=== PATIENT | female | born 1950 | race Caucasian/White ===

== ENCOUNTER 2020-08-13 06:22 | Day surgery (SDC) | payer OTHER ==
--- NOTE | 2020-08-11 04:38 | EKG ---
Test Date: 2020-08-09 Test Time: 12:53:04 Cosmetic Chemist: MADHAV MEASUREMENT RESULTS: Intervals: Rate: 91 WI: QRSD: 70 QT: 372 QTc: 457 [place]: P: WI: QRS: 4 T: -72 INTERPRETIVE STATEMENTS: Atrial fibrillation Nonspecific ST and T wave abnormality, probably digitalis effect Abnormal ECG No previous ECG available for comparison Electronically Signed On 08-11-20 04:32:53 CDT by Cisco Means
[2020-08-13] MEDS ORDERED: Ringers Lactate 1,000 ML IV ONE (06:53)
[2020-08-13] MEDS ORDERED: MIDAZOLAM HCL 2 MG/2 ML INJ ONE (07:31)
[2020-08-13] MEDS ORDERED: FENTANYL CITR 100 MCG/2 ML ONE (07:31)
[2020-08-13] MEDS ORDERED: propofoL 200 MG/20 ML VIAL IV ONE (07:31)
[2020-08-13] MEDS ORDERED: LIDOCAINE 2% MPF 5 ML VIAL ONE (07:32)
[2020-08-13] MEDS ORDERED: dexAMETHasone 10 MG/ML VIAL ONE (07:32)
[2020-08-13] MEDS ORDERED: ROCURONIUM 50 MG/5 ML VIAL IV ONE (07:32)
[2020-08-13] MEDS ORDERED: LIDOCAINE 1% W/EPI 1:100,000 MDV 20 ML VIAL ONE (08:33)
[2020-08-13] MEDS ORDERED: EPINEPHRINE/PF 1 MG/ML AMP ONE (08:33)
[2020-08-13] MEDS ORDERED: ONDANSETRON 4 MG/2 ML VIAL ONE (10:20)
--- NOTE | 2020-08-13 10:27 | P.BOP ---
Preoperative diagnosis: neoplasm uncertain behavior, pharyx Postoperative diagnosis: same Primary procedure: DL with telescope and biopsy Infection Control Nurse: NONE,NONE Estimated blood loss: minimal Specimen: left lateral/posterior pharyngeal wall Anesthesia: General Complications: None Implants: none Fluids & blood products: see nursing record Transferred to: Recovery Room Condition: Good
--- NOTE | 2020-08-13 11:13 | OP ---
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 Postoperative Diagnosis: Neoplasm of pharynx of uncertain behavior. Procedure: Direct laryngoscopy with telescope and biopsy. Findings: 2.5 x 2 cm ulceration with small areas of exophytic appearing tumor located on the left lateral and posterior pharyngeal wall. Clinically suspicious for squamous cell carcinoma. Indication For Procedure: The patient is a smoker and daily alcohol user, who presented with chronic sore throats and odynophagia. Her laryngoscopy and physical exam were suspicious for ulceration or tumor and recommendation was made to proceed with biopsy. Description Of Procedure In Detail: The patient was brought to the operating room. She was placed under general anesthesia via oral endotracheal tube. The exam under anesthesia revealed the patient had normal lips and buccal mucosa, normal gingiva, edentulous, no visible or palpable lesions of the floor of mouth, retromolar trigone or oral tongue. The patient had no significant tonsillar tissue and findings suggestive of previous tonsillectomy. The base of tongue was soft to palpation. The vallecula was clear to palpation. The left posterior and lateral pharyngeal wall had a palpable ulcerated area that was felt to be about 1.5 to 2 cm. The Ishaan laryngoscope was then used to perform a direct laryngoscopy. The soft palate, uvula, tonsillar fossas appeared normal. The vallecula and the epiglottis appeared normal. The false vocal fold, true vocal fold, retinoid and pyriform sinuses appeared normal. The right lateral and posterior pharyngeal wall was normal. There was a large ulceration of the left lateral and posterior pharyngeal wall. A pledget was used to perform a measurement of the ulceration, which resulted in a 2.5 x 2 cm size estimation. During suspension, the 15 degree rigid telescope was used to obtain photo documentation of the lesion in order to provide clear communication with future Radiation and Medical Oncology providers regarding the size and location of the tumor. A cup forceps was used to take several biopsies from the ulcerated and raised edges. A gauze sponge was packed within the wound and left in place for several minutes. After removal, the biopsy site appeared hemostatic. There was no significant bleeding. The procedure was concluded and the patient was returned to care of anesthesia. During the final count, it was noted that the pledget used to measure the tumor was not present in the count. The Ishaan laryngoscope was used again to perform a laryngoscopy and thoroughly examine the surgical field. The pledget was not found to be within the patient. On further searching, the pledget of interest was located on the floor and included to complete the final correct account. Following the completion and the correct final counts, the patient was returned to care of anesthesia and was extubated in the operating room without difficulty. She was transported to the recovery room and will be discharged later today in the care of her family to resume diet as tolerated. She has a followup to discuss the surgical findings and implications with Dr. Real in 10 days. KALEB/CALDERON Voice ID: [id number] Report ID: [id number] MTDD
[2020-08-13 11:22] VITALS: BP 109/60; TEMP 96.6; O2SAT 95
== END 2020-08-13 11:00 | disposition home health service (06) ==
LOC: OR 06:22
PROVIDERS: ATTEND Otolaryngology
PROC: 0CBM8ZX Excision of Pharynx, Via Natural or Artificial Opening Endoscopic, Diagnostic (ICD-10-PCS; principal; 2020-08-13 08:00)
DX: D00.08 Carcinoma in situ of pharynx (principal); Z72.0 Tobacco use; Z20.822 Contact with and (suspected) exposure to COVID-19
CPT/HCPCS: 88305; 93005; J0171; J1100; J2250; J2405; J2704; J3010; J7120; U0002

== ENCOUNTER 2020-11-05 10:39 | Emergency (ER) | payer OTHER ==
--- OUTSIDE RECORDS SUMMARY | 2020-11-05 10:43 | XMS REPORT | Continuity of Care Document ---
:1950 Author Organization [facility] t Address [address] [place] [address] Care Team Providers Name Role Phone Ross WEBER, T Attending Clinician Unavailable Kamille Poole DO Attending Clinician Only, Test Attending Clinician Unavailable Problems This patient has no known problems. Allergies, Adverse Reactions, Alerts This patient has no known allergies or adverse reactions. Social History Social Habit Start Date Stop Date Quantity Comments Source Sex Assigned At [birth year] [place] M ethodist 00:00:00 00:00:00 Medications This patient has no known medications. Procedures This patient has no known procedures. Encounters Start End Encounter Admission Attending Care Care Encounter Source Date/Time Date/Time Type Type Clinicians Facility Department ID 2020-05-04 2020-05-04 Letter MARY Hawkins [id number] 00:00:00 00:00:00 (Out) Ariela ALVAREZ [id number] [facility] [id number] 2020-05-04 2020-05-04 Telephone MARY Poole [id number] 00:00:00 00:00:00 Yong ALVAREZ [id number] [place] [id number] 2020-05-03 2020-05-03 Laboratory Only, [facility] [id number] 12:01:39 12:16:39 Only Test [place] [id number] [place] [id number] [place] [id number] 353 2019-10-21 2019-10-21 Laboratory Only, [facility] [id number] 14:06:14 14:21:14 Only Test [place] [id number] [place] [id number] [facility] [id number] [facility] 353 Building Results This patient has no known results.
[2020-11-05] MEDS ORDERED: CODEINE 12mg/APAP 120mg PER 5 ML UCUP ONE (12:14)
[2020-11-05] MEDS ORDERED: LIDOCAINE VISCOUS 2% SOLN 15 ML UDC ONE (12:14)
[2020-11-05] MEDS ORDERED: NA CHLORIDE 0.9% 1,000 ML ONE (12:14)
[2020-11-05] MEDS ORDERED: FAMOTIDINE 20 MG/2 ML VIAL IV ONE (12:14)
[2020-11-05 12:18] LABS: Absolute Lymphocytes (CBC) 0.4 K/uL (0.7-4.9); Basophils % 0.4 % (0-1.3); Hematocrit 38.9 % (36.0-45.0); Lymphocytes % 4.3 % (15.3-44.8); MPV 8.2 fL (7.6-11.3); RBC Red Blood Cell Count 3.89 M/uL (3.86-4.86)
[2020-11-05 12:43] LABS: ALT/SGPT 13 U/L (12-78); AST/SGOT 13 U/L (15-37); Albumin 2.9 g/dL (3.4-5.0); Alkaline Phosphatase 82 U/L (45-117); BUN Blood Urea Nitrogen 10 mg/dL (7-18); Bicarbonate 35 mmol/L (21-32); Bilirubin Direct 0.1 mg/dL (0-0.2); Bilirubin Total 0.4 mg/dL (0.2-1.0); Glucose Level 110 mg/dL (74-106); Protein, Total 7.2 g/dL (6.4-8.2); Sodium Level 134 mmol/L (136-145)
[2020-11-05 12:50] LABS: Blood Morphology Comment NOT SEEN (NOT SEEN); Platelet Estimate ADEQ; White Blood Cell Scan OK (OK)
[2020-11-05 13:14] LABS: Potassium 2.8 mmol/L (3.5-5.1)
[2020-11-05] MEDS ORDERED: POTASSIUM CL SA 10 MEQ TAB PO ONE (13:50)
[2020-11-05] MEDS ORDERED: KCL 20 MEQ/100 mL IVPB 20 MEQ/100 ML BAG IV ONE (13:50)
--- NOTE | 2020-11-05 15:33 | ER ---
Nurse's Notes [facility] Name: Katheryn García Age: 70 yrs Sex: Female : 1950 Arrival Date: 11/05/2020 Time: 10:43 Bed 18 Private MD: out of town, doctor Diagnosis: Acute laryngitis and tracheitis-Radiation induced Presentation: 11/05 11:00 Chief complaint: Patient states: Pt presents from home with complaints of not being kg able to eat for 4 days. She is receiving radiation for cancer on her neck and unable to swallow due to the pain. She has been drinking 3 glasses of water but unable to take her medication due to it being too painful.. Coronavirus screen: Client denies travel out of the [place] in the last 14 days. At this time, unable to obtain information related to travel outside the [place] Ebola Screen: Patient negative for fever greater than or equal to 101.5 degrees Fahrenheit, and additional compatible Ebola Virus Disease symptoms Patient denies exposure to infectious person. Patient denies travel to an Ebola-affected area in the 21 days before illness onset. Initial Sepsis Screen: Does the patient meet any 2 criteria? No. Patient's initial sepsis screen is negative. Does the patient have a suspected source of infection? No. Patient's initial sepsis screen is negative. Risk Assessment: Do you want to hurt yourself or someone else? Patient reports no desire to harm self or others. Onset of symptoms was November 01, 2020. 11:00 Method Of Arrival: Ambulatory kg 11:00 Acuity: JEAN 4 kg 12:09 Acuity: JEAN 3 iw Historical: - Allergies: 11:07 No Known Allergies; kg - PMHx: 11:07 Cancer; throat; High Cholesterol; Hypertension; Anxiety; Depression; kg - PSHx: 11:07 Heart stents; ; Tonsillectomy; left hip surgery; kg - Immunization history:: Adult Immunizations not up to date, Client reports receiving the 2nd dose of the Covid vaccine. - Social history:: Smoking status: Patient/guardian denies using tobacco, Stopped _ months ago 1. Screenin:46 Abuse screen: Denies threats or abuse. Nutritional screening: Difficulty vg1 chewing/swallowing? Yes. Tuberculosis screening: No symptoms or risk factors identified. Fall Risk No fall in past 12 months (0 pts). No secondary diagnosis (0 pts). IV access (20 points). Ambulatory Aid- None/Bed Rest/Nurse Assist (0 pts). Gait- Normal/Bed Rest/Wheelchair (0 pts) Mental Status- Oriented to own ability (0 pts). Total Leonard Fall Scale indicates No Risk (0-24 pts). Assessment: 11:38 General: Appears in no apparent distress. uncomfortable, Behavior is calm, cooperative. vg1 Pain: Complains of pain in throat Pain currently is 8 out of 10 on a pain scale. Pain began 2-3 days ago. Noted to be grimacing. Neuro: Level of Consciousness is awake, alert, obeys commands, Oriented to person, place, time, situation. Cardiovascular: Patient's skin is warm and dry. Respiratory: Airway is patent Respiratory effort is even, unlabored. GI: No signs and/or symptoms were reported involving the gastrointestinal system. : No signs and/or symptoms were reported regarding the genitourinary system. EENT: Throat is reddened has patchy exudate Reports difficulty swallowing Pt stated drinks about two glass of water a day and hasnt taken medication because its too pain to swallow and is unable to eat solid food. Derm: Skin is intact, Skin is pink, warm \T\ dry. Musculoskeletal: Circulation, motion, and sensation intact. 13:11 Reassessment: Patient appears in no apparent distress at this time. Patient and/or vg1 family updated on plan of care and expected duration. Pain level reassessed. Patient is alert, oriented x 3, equal unlabored respirations, skin warm/dry/pink. 14:52 Reassessment: Patient appears in no apparent distress at this time. Patient and/or vg1 family updated on plan of care and expected duration. Pain level reassessed. Patient is alert, oriented x 3, equal unlabored respirations, skin warm/dry/pink. Patient states feeling better. Vital Signs: 11:00 BP 108 / 65; Pulse 62; Resp 14; Temp 97.6(O); Pulse Ox 100% ; Weight 44.77 kg (M); kg Height 5 ft. 1 in. (154.94 cm) (R); Pain 8/10; 11:44 BP 114 / 61; Pulse 62; Resp 16; Pulse Ox 98% on R/A; vg1 12:45 BP 120 / 59; Pulse 55; Resp 16; Pulse Ox 99% on R/A; vg1 14:00 BP 113 / 89; Pulse 57; Resp 16; Pulse Ox 100% on R/A; vg1 14:30 BP 148 / 74; Pulse 58; Resp 14; Pulse Ox 100% on R/A; vg1 11:00 Body Mass Index 18.65 (44.77 kg, 154.94 cm) kg ED Course: 10:43 Patient arrived in ED. hh 10:44 out of town, doctor is Private Physician. hh 11:05 Triage completed. kg 11:14 Luis A Watkins MD is Attending Physician. kdr 11:38 Opal Mckenzie RN is Primary Nurse. vg1 11:46 Patient has correct armband on for positive identification. Bed in low position. Call vg1 light in reach. Side rails up X2. Adult w/ patient. 11:46 Arm band placed on. vg1 12:04 Initial lab(s) drawn, by sd, sent to lab. Inserted saline lock: 22 gauge in right vg1 antecubital area, using aseptic technique. Blood collected. 15:31 Pj Navarro MD is Referral Physician. kdr 15:58 No provider procedures requiring assistance completed. IV discontinued, intact, vg1 bleeding controlled, No redness/swelling at site. Pressure dressing applied. Administered Medications: 12:06 Drug: NS 0.9% 1000 ml Route: IV; Rate: 1 bolus; Site: right antecubital; vg1 13:25 Follow up: IV Status: Completed infusion; IV Intake: 1000ml vg1 12:07 Drug: Pepcid (famotidine) 20 mg Route: IVP; Site: right antecubital; vg1 13:25 Follow up: Response: No adverse reaction vg1 12:09 Drug: Tylenol (acetaminophen) -Codeine #3 (120 mg - 12 mg) 10 ml Route: PO; vg1 13:25 Follow up: Response: No adverse reaction; Pain is decreased vg1 12:11 Drug: Viscous Lidocaine Liquid (4 %) 5 ml Route: Mucous Membrane; vg1 13:25 Follow up: Response: No adverse reaction; Pain is decreased vg1 13:47 Drug: Potassium Chloride 20 mEq Route: IV; Rate: calculated rate; Site: right vg1 antecubital; 15:58 Follow up: IV Status: Completed infusion vg1 13:48 Drug: Potassium Chloride 40 mEq Route: PO; vg1 15:58 Follow up: Response: No adverse reaction vg1 Intake: 13:25 IV: 1000ml; Total: 1000ml. vg1 Outcome: 15:33 Discharge ordered by . kdr 15:58 Discharged to home ambulatory, with family. vg1 15:58 Condition: stable 15:58 Discharge instructions given to patient, Instructed on discharge instructions, follow up and referral plans. medication usage, Demonstrated understanding of instructions, follow-up care, medications, Prescriptions given X 1. 15:59 Patient left the ED. vg1 Signatures: Luis A Watkins MD MD kdr Vika Chou, GUS RN iw Opal Mckenzie RN RN vg1 Ynes Blum RN RN Emerald Vickers Corrections: (The following items were deleted from the chart) 11:45 11:38 EENT: Throat is reddened has patchy exudate vg1 vg1
--- NOTE | 2020-11-05 15:33 | EDPHYS ---
Physician Documentation [facility] Name: Katheryn García Age: 70 yrs Sex: Female : 1950 Arrival Date: 11/05/2020 Time: 10:43 Bed 18 Private MD: out of town, doctor ED Physician Luis A Watkins HPI: 11/05 17:01 This 70 yrs old Female presents to ER via Ambulatory with complaints of kdr Decreased Appetite. 17:01 The patient has been receiving radiation to her neck and is now experiencing kdr significant burning with any food/fluids in her mouth as well as difficulty swallowing. There has been discussion of possible PEG tube placement but no definitive plan for implementation. Onset: The symptoms/episode began/occurred gradually, 1 week(s) ago. Severity of symptoms: At their worst the symptoms were moderate severe incapacitating in the emergency department the symptoms are unchanged. The patient has not experienced similar symptoms in the past. The patient has been recently seen by a physician: the patient's primary care provider. Historical: - Allergies: 11:07 No Known Allergies; kg - PMHx: 11:07 Cancer; throat; High Cholesterol; Hypertension; Anxiety; Depression; kg - PSHx: 11:07 Heart stents; ; Tonsillectomy; left hip surgery; kg - Immunization history:: Adult Immunizations not up to date, Client reports receiving the 2nd dose of the Covid vaccine. - Social history:: Smoking status: Patient/guardian denies using tobacco, Stopped _ months ago 1. ROS: 17:01 Constitutional: Negative for fever, chills, and weight loss, Eyes: Negative for injury, kdr pain, redness, and discharge, ENT: Negative for injury, pain, and discharge, Cardiovascular: Negative for chest pain, palpitations, and edema, Respiratory: Negative for shortness of breath, cough, wheezing, and pleuritic chest pain, Abdomen/GI: Negative for abdominal pain, nausea, vomiting, diarrhea, and constipation, Back: Negative for injury and pain, : Negative for injury, bleeding, discharge, and swelling, MS/Extremity: Negative for injury and deformity, Skin: Negative for injury, rash, and discoloration, Neuro: Negative for headache, weakness, numbness, tingling, and seizure activity. Psych: Negative for depression, anxiety, suicide ideation, homicidal ideation, and hallucinations, Allergy/Immunology: Negative for hives, rash, and allergies, Endocrine: Negative for neck swelling, polydipsia, polyuria, polyphagia, and marked weight changes, Hematologic/Lymphatic: Negative for swollen nodes, abnormal bleeding, and unusual bruising. 17:01 Neck: Positive for pain at rest, stiffness, tenderness, of the neck, Negative for injury or acute deformity, mass. Exam: 17:01 Constitutional: This is a well developed, well nourished patient who is awake, alert, kdr and in no acute distress. Head/Face: Normocephalic, atraumatic. Eyes: Pupils equal round and reactive to light, extra-ocular motions intact. Lids and lashes normal. Conjunctiva and sclera are non-icteric and not injected. Cornea within normal limits. Periorbital areas with no swelling, redness, or edema. Chest/axilla: Normal chest wall appearance and motion. Nontender with no deformity. No lesions are appreciated. Cardiovascular: Regular rate and rhythm with a normal S1 and S2. No gallops, murmurs, or rubs. Normal PMI, no JVD. No pulse deficits. Respiratory: Lungs have equal breath sounds bilaterally, clear to auscultation and percussion. No rales, rhonchi or wheezes noted. No increased work of breathing, no retractions or nasal flaring. Abdomen/GI: Soft, non-tender, with normal bowel sounds. No distension or tympany. No guarding or rebound. No evidence of tenderness throughout. Back: No spinal tenderness. No costovertebral tenderness. Full range of motion. Skin: Warm, dry with normal turgor. Normal color with no rashes, no lesions, and no evidence of cellulitis. 17:01 ENT: External ear(s): Mouth: Lips: Oral mucosa: Tongue: is normal, drooling, is not appreciated. Vital Signs: 11:00 BP 108 / 65; Pulse 62; Resp 14; Temp 97.6(O); Pulse Ox 100% ; Weight 44.77 kg (M); kg Height 5 ft. 1 in. (154.94 cm) (R); Pain 8/10; 11:44 BP 114 / 61; Pulse 62; Resp 16; Pulse Ox 98% on R/A; vg1 12:45 BP 120 / 59; Pulse 55; Resp 16; Pulse Ox 99% on R/A; vg1 14:00 BP 113 / 89; Pulse 57; Resp 16; Pulse Ox 100% on R/A; vg1 14:30 BP 148 / 74; Pulse 58; Resp 14; Pulse Ox 100% on R/A; vg1 11:00 Body Mass Index 18.65 (44.77 kg, 154.94 cm) kg MDM: 15:33 Patient medically screened. kdr 17:01 Data reviewed: vital signs, nurses notes. Response to treatment: the patient's symptoms kdr have markedly improved after treatment. 11/05 11:47 Order name: Basic Metabolic Panel; Complete Time: 13:23 kdr 11/05 11:47 Order name: CBC with Diff; Complete Time: 13:23 kdr 11/05 11:47 Order name: Hepatic Function; Complete Time: 13:23 kdr 11/05 12:25 Order name: CBC Smear Scan; Complete Time: 13:23 EDMS 11/05 11:47 Order name: IV Saline Lock; Complete Time: 12:17 kdr 11/05 11:47 Order name: Labs collected and sent; Complete Time: 12:17 kdr 11/05 12:45 Order name: PO challenge; Complete Time: 12:55 kdr Administered Medications: 12:06 Drug: NS 0.9% 1000 ml Route: IV; Rate: 1 bolus; Site: right antecubital; vg1 13:25 Follow up: IV Status: Completed infusion; IV Intake: 1000ml vg1 12:07 Drug: Pepcid (famotidine) 20 mg Route: IVP; Site: right antecubital; vg1 13:25 Follow up: Response: No adverse reaction vg1 12:09 Drug: Tylenol (acetaminophen) -Codeine #3 (120 mg - 12 mg) 10 ml Route: PO; vg1 13:25 Follow up: Response: No adverse reaction; Pain is decreased vg1 12:11 Drug: Viscous Lidocaine Liquid (4 %) 5 ml Route: Mucous Membrane; vg1 13:25 Follow up: Response: No adverse reaction; Pain is decreased vg1 13:47 Drug: Potassium Chloride 20 mEq Route: IV; Rate: calculated rate; Site: right vg1 antecubital; 15:58 Follow up: IV Status: Completed infusion vg1 13:48 Drug: Potassium Chloride 40 mEq Route: PO; vg1 15:58 Follow up: Response: No adverse reaction vg1 Disposition: 11/05/20 15:33 Discharged to Home. Impression: Acute laryngitis and tracheitis - Radiation induced. - Condition is Stable. - Discharge Instructions: Dysphagia, Laryngitis, [id number]. - Prescriptions for Lidocaine Viscous - take 5 milliliter by ORAL route 3 times per day As needed Swish and swallow no more than three times a day as needed for painful swallowing; 21 Container. - Medication Reconciliation Form, Thank You Letter form. - Follow up: Pj Navarro MD; When: 2 - 3 days; Reason: If symptoms return, Further diagnostic work-up, Recheck today's complaints, Continuance of care, Re-evaluation by your physician. - Problem is an ongoing problem. - Symptoms have improved. Signatures: Dispatcher [employer] EDMS Luis A Watkins MD MD kdr Opal Mckenzie RN RN vg1 Ynes Blum RN RN kg Corrections: (The following items were deleted from the chart) 15:59 15:33 11/05/2020 15:33 Discharged to Home. Impression: Acute laryngitis and tracheitis vg1 - Radiation induced. Condition is Stable. Forms are Medication Reconciliation Form, Thank You Letter, Antibiotic Education, Prescription Opioid Use. Follow up: Pj Navarro; When: 2 - 3 days; Reason: If symptoms return, Further diagnostic work-up, Recheck today's complaints, Continuance of care, Re-evaluation by your physician. Problem is an ongoing problem. Symptoms have improved. kdr
[2020-11-05 16:30] VITALS: TEMP 97.6
[2020-11-05 16:35] VITALS: O2SAT 100
[2020-11-05 16:36] VITALS: BP 148/74
== END 2020-11-05 15:59 | disposition home or self-care (01) ==
LOC: ER 10:39 → SUPCPDRO 10:39 → ER 15:59
DX: J04.2 Acute laryngotracheitis (principal); T66.XXXA Radiation sickness, unspecified, initial encounter; C14.0 Malignant neoplasm of pharynx, unspecified; E78.00 Pure hypercholesterolemia, unspecified; I10 Essential (primary) hypertension; F41.9 Anxiety disorder, unspecified; F32.9 Major depressive disorder, single episode, unspecified; Z95.5 Presence of coronary angioplasty implant and graft; Z87.891 Personal history of nicotine dependence
CPT/HCPCS: 96365; 96361; 85025; 80048; 36415; 80076; 96375; 99284; 96366; J3480; J7030

== ENCOUNTER 2020-11-12 09:15 | Emergency (ER) | payer OTHER ==
--- OUTSIDE RECORDS SUMMARY | 2020-11-12 09:17 | XMS REPORT | Continuity of Care Document ---
:1950 Author Organization [facility] t Address [address] [place] [address] Care Team Providers Name Role Phone Ross WBEER, T Attending Clinician Unavailable Kamille Poole DO Attending Clinician Only, Test Attending Clinician Unavailable Problems This patient has no known problems. Allergies, Adverse Reactions, Alerts This patient has no known allergies or adverse reactions. Social History Social Habit Start Date Stop Date Quantity Comments Source Sex Assigned At [birth year] [place] M ethodist 00:00:00 00:00:00 Medications This patient has no known medications. Procedures This patient has no known procedures. Encounters Start End Encounter Admission Attending Care Care Encounter Source Date/Time Date/Time Type Type Clinicians Facility Department ID 2020-05-04 2020-05-04 Letter MARY Hawkins [id number] 00:00:00 00:00:00 (Out) Ariela ALVAREZ [id number] [facility] [id number] 2020-05-04 2020-05-04 Telephone MARY Poole [id number] 00:00:00 00:00:00 Yong ALVAREZ [id number] [place] [id number] 2020-05-03 2020-05-03 Laboratory Only, [facility] [id number] 12:01:39 12:16:39 Only Test [place] [id number] [place] [id number] [place] [id number] 2019-10-21 2019-10-21 Laboratory Only, [facility] 1.2.840.114 [id number] 14:06:14 14:21:14 Only Test [place] [id number] [place] [id number] [facility] [id number] [facility] 353 Building Results This patient has no known results.
[2020-11-12 11:08] LABS: ALT/SGPT 15 U/L (12-78); AST/SGOT 18 U/L (15-37); Albumin 2.9 g/dL (3.4-5.0); Alkaline Phosphatase 84 U/L (45-117); BUN Blood Urea Nitrogen 10 mg/dL (7-18); Bicarbonate 28 mmol/L (21-32); Bilirubin Total 0.5 mg/dL (0.2-1.0); Glucose Level 87 mg/dL (74-106); Magnesium 1.5 mg/dL (1.8-2.4); Protein, Total 7.2 g/dL (6.4-8.2); Sodium Level 134 mmol/L (136-145)
[2020-11-12] MEDS ORDERED: NA CHLORIDE 0.9% 500 ML ONE (11:58)
[2020-11-12] MEDS ORDERED: KCL 20 MEQ/100 mL IVPB 20 MEQ/100 ML BAG IV ONE (11:59)
--- NOTE | 2020-11-12 13:31 | EDPHYS ---
Physician Documentation [facility] Name: Katheryn García Age: 70 yrs Sex: Female : 1950 Arrival Date: 11/12/2020 Time: 09:21 Bed 2 Private MD: ED Physician Edwina Pino HPI: 11/12 13:28 This 70 yrs old Female presents to ER via Wheelchair with complaints of Lower ma2 Potassium. 13:28 Onset: The symptoms/episode began/occurred gradually, 1 day(s) ago. Severity of ma2 symptoms: At their worst the symptoms were mild in the emergency department the symptoms are unchanged. The patient has not experienced similar symptoms in the past. sent by dr. fregoso for k replacement . Historical: - Allergies: 10:47 No Known Allergies; ph - PMHx: 09:33 Anxiety; Cancer; throat; Depression; High Cholesterol; Hypertension; ss - PSHx: 09:33 Heart stents; ; Tonsillectomy; left hip surgery; ss - Immunization history:: Adult Immunizations up to date. - Social history:: Smoking status: Patient denies any tobacco usage or history of. Patient/guardian denies using alcohol, street drugs, The patient lives with family. - Family history:: not pertinent. ROS: 13:28 Constitutional: Negative for fever, chills, and weight loss. ma2 13:28 All other systems are negative. Exam: 13:28 Constitutional: This is a well developed, well nourished patient who is awake, alert, ma2 and in no acute distress. Chest/axilla: Normal chest wall appearance and motion. Nontender with no deformity. No lesions are appreciated. Cardiovascular: Regular rate and rhythm with a normal S1 and S2. No gallops, murmurs, or rubs. Normal PMI, no JVD. No pulse deficits. Respiratory: Lungs have equal breath sounds bilaterally, clear to auscultation and percussion. No rales, rhonchi or wheezes noted. No increased work of breathing, no retractions or nasal flaring. Abdomen/GI: Soft, non-tender, with normal bowel sounds. No distension or tympany. No guarding or rebound. No evidence of tenderness throughout. Skin: Warm, dry with normal turgor. Normal color with no rashes, no lesions, and no evidence of cellulitis. MS/ Extremity: Pulses equal, no cyanosis. Neurovascular intact. Full, normal range of motion. Neuro: Awake and alert, GCS 15, oriented to person, place, time, and situation. Cranial nerves II-XII grossly intact. Motor strength 5/5 in all extremities. Sensory grossly intact. Cerebellar exam normal. Normal gait. Vital Signs: 09:39 BP 135 / 81; Pulse 60; Resp 16; Pulse Ox 100% on R/A; ph 12:24 BP 136 / 96; Pulse 56; Resp 18; Pulse Ox 100% on R/A; ph 13:30 BP 127 / 89; Pulse 54; Resp 16; Temp 97.2; Pulse Ox 100% on R/A; ph MDM: 09:31 Patient medically screened. ma2 13:28 Differential Diagnosis low potassium... Data reviewed: vital signs, nurses notes. ma2 Counseling: I had a detailed discussion with the patient and/or guardian regarding: the historical points, exam findings, and any diagnostic results supporting the discharge/admit diagnosis, the presence of at least one elevated blood pressure reading (>120/80) during this emergency department visit, the need for outpatient follow up. Response to treatment: the patient's symptoms have markedly improved after treatment. 11/12 09:32 Order name: CMP; Complete Time: 11:20 ma2 11/12 09:32 Order name: Magnesium; Complete Time: 11:20 ma2 Administered Medications: 11:45 Drug: Potassium Chloride 20 mEq Route: IV; Rate: calculated rate; Site: left forearm; ph 13:00 Follow up: Response: No adverse reaction; IV Status: Completed infusion ph Disposition: 11/12/20 13:30 Discharged to Home. Impression: Hypokalemia. - Condition is Stable. - Discharge Instructions: Potassium Content of Foods, Hypokalemia. - Prescriptions for Potassium Chloride 20 meq Oral Packet - take 1 packet by ORAL route once daily 1 packet in 6 (six) ounces of water or juice; Take after meal; 30 packet. - Medication Reconciliation Form, Thank You Letter, Antibiotic Education, Prescription Opioid Use form. - Follow up: Private Physician; When: Tomorrow; Reason: If symptoms return, Continuance of care. Signatures: Dispatcher [employer] Mary Thomas RN RN ss Lupe Eldridge RN RN Edwina Pino MD MD ma2 Corrections: (The following items were deleted from the chart) 14:02 13:30 11/12/2020 13:30 Discharged to Home. Impression: Hypokalemia. Condition is ph Stable. Prescriptions for Potassium Chloride 20 meq Oral Packet - take 1 packet by ORAL route once daily 1 packet in 6 (six) ounces of water or juice; Take after meal; 30 packet. and Forms are Medication Reconciliation Form, Thank You Letter, Antibiotic Education, Prescription Opioid Use. Follow up: Private Physician; When: Tomorrow; Reason: If symptoms return, Continuance of care. ma2
--- NOTE | 2020-11-12 13:31 | ER ---
Nurse's Notes [facility] Name: Katheryn García Age: 70 yrs Sex: Female : 1950 Arrival Date: 11/12/2020 Time: 09:21 Bed 2 Private MD: Diagnosis: Hypokalemia Presentation: 11/12 09:31 Chief complaint: Patient states: Sent by Dr. Navarro for low potassium (2.5). Pt was ss supposed to have potassium infusion prior to peg tube placement today, but did not show up for her infusion yesterday therefore was told to come to ER to have potassium replaced and reevaluated. Coronavirus screen: Client denies travel out of the [place] in the last 14 days. Ebola Screen: Patient denies exposure to infectious person. Patient denies travel to an Ebola-affected area in the 21 days before illness onset. 09:31 Method Of Arrival: Wheelchair ss 09:34 Onset of symptoms is unknown. 09:34 Acuity: JEAN 3 ss 09:39 Initial Sepsis Screen: Does the patient meet any 2 criteria? No. Patient's initial ph sepsis screen is negative. Does the patient have a suspected source of infection? No. Patient's initial sepsis screen is negative. Risk Assessment: Do you want to hurt yourself or someone else? Patient reports no desire to harm self or others. Historical: - Allergies: 10:47 No Known Allergies; ph - PMHx: 09:33 Anxiety; Cancer; throat; Depression; High Cholesterol; Hypertension; ss - PSHx: 09:33 Heart stents; ; Tonsillectomy; left hip surgery; ss - Immunization history:: Adult Immunizations up to date. - Social history:: Smoking status: Patient denies any tobacco usage or history of. Patient/guardian denies using alcohol, street drugs, The patient lives with family. - Family history:: not pertinent. Screenin:39 Abuse screen: Denies threats or abuse. Denies injuries from another. Nutritional ph screening: No deficits noted. Tuberculosis screening: No symptoms or risk factors identified. Fall Risk None identified. Assessment: 10:48 General: Appears in no apparent distress. comfortable, slender, well groomed, Behavior ph is calm, cooperative, appropriate for age, Denies fever, feeling ill. Pain: Denies pain. Neuro: Level of Consciousness is awake, alert, obeys commands, Oriented to person, place, time, situation. Cardiovascular: Capillary refill < 3 seconds in bilateral fingers Patient's skin is warm and dry. Respiratory: Airway is patent Respiratory effort is even, unlabored, Respiratory pattern is regular, symmetrical. GI: Reports diarrhea, Patient currently denies abdominal pain, vomiting. Derm: Skin is intact, Skin is pink, warm \T\ dry. Musculoskeletal: Circulation, motion, and sensation intact. Range of motion: intact in all extremities. 11:54 Reassessment: Patient appears in no apparent distress at this time. Patient and/or ph family updated on plan of care and expected duration. Pain level reassessed. Patient is alert, oriented x 3, equal unlabored respirations, skin warm/dry/pink. 13:30 Reassessment: Patient appears in no apparent distress at this time. Patient and/or ph family updated on plan of care and expected duration. Pain level reassessed. Patient is alert, oriented x 3, equal unlabored respirations, skin warm/dry/pink. Vital Signs: 09:39 BP 135 / 81; Pulse 60; Resp 16; Pulse Ox 100% on R/A; ph 12:24 BP 136 / 96; Pulse 56; Resp 18; Pulse Ox 100% on R/A; ph 13:30 BP 127 / 89; Pulse 54; Resp 16; Temp 97.2; Pulse Ox 100% on R/A; ph ED Course: 09:21 Patient arrived in ED. ds1 09:31 Edwina Pino MD is Attending Physician. ma2 09:31 Mary Rendon, GUS is Primary Nurse. ss 09:35 Triage completed. ss 09:39 Primary Nurse role handed off by Mary Rendon, RN ph 09:39 Lupe Eldridge, GUS is Primary Nurse. ph 09:39 Arm band placed on Patient placed in an exam room, on a stretcher. ph 10:48 Patient has correct armband on for positive identification. Bed in low position. Call ph light in reach. Side rails up X 1. cardiac monitor on. Pulse ox on. NIBP on. Door closed. Noise minimized. Warm blanket given. 10:51 Initial lab(s) drawn, by ms, sent to lab. Inserted saline lock: 22 gauge in left ph forearm, using aseptic technique. Blood collected. 14:00 No provider procedures requiring assistance completed. IV discontinued, intact, ph bleeding controlled, No redness/swelling at site. Pressure dressing applied. Administered Medications: 11:45 Drug: Potassium Chloride 20 mEq Route: IV; Rate: calculated rate; Site: left forearm; ph 13:00 Follow up: Response: No adverse reaction; IV Status: Completed infusion ph Outcome: 13:30 Discharge ordered by MD. pastrana 14:02 Patient left the ED. ph 14:02 Discharged to home ambulatory. ph 14:02 Condition: good 14:02 Discharge instructions given to patient, Instructed on discharge instructions, follow up and referral plans. medication usage, Demonstrated understanding of instructions, follow-up care, medications, Prescriptions given X 1. Signatures: Gauri Johnson ds1 Mary Rendon, GUS RN Lupe Eldridge RN RN Edwina Pino MD MD ma2
[2020-11-12 14:13] VITALS: O2SAT 100
[2020-11-12 14:25] VITALS: BP 130/94
== END 2020-11-12 14:02 | disposition home or self-care (01) ==
LOC: ER 09:15
DX: E87.6 Hypokalemia (principal); Z95.5 Presence of coronary angioplasty implant and graft; F41.9 Anxiety disorder, unspecified; F32.9 Major depressive disorder, single episode, unspecified; E78.00 Pure hypercholesterolemia, unspecified; C14.0 Malignant neoplasm of pharynx, unspecified; I10 Essential (primary) hypertension
CPT/HCPCS: 36415; 83735; 80053; J3480; J7040

== ENCOUNTER → 2020-11-12 | Day surgery (SDC) | payer OTHER ==
[2020-11-11 16:34] LABS: Absolute Lymphocytes (CBC) 0.8 K/uL (0.7-4.9); Basophils % 0.6 % (0-1.3); Hematocrit 38.5 % (36.0-45.0); Lymphocytes % 10.1 % (15.3-44.8); MPV 8.1 fL (7.6-11.3); RBC Red Blood Cell Count 3.88 M/uL (3.86-4.86)
[2020-11-11 16:53] LABS: BUN Blood Urea Nitrogen 12 mg/dL (7-18); Bicarbonate 32 mmol/L (21-32); Glucose Level 87 mg/dL (74-106); Sodium Level 136 mmol/L (136-145)
[2020-11-11 16:58] LABS: Potassium 2.5 mmol/L (3.5-5.1)
[~2020-11-12] MED LIST: CEFAZOLIN/SWI 1gm 0 GM/0 ML SYR ONE; CEFAZOLIN/SWI 1gm 1 GM/10 ML SYR ONE; POTASSIUM CL 40 MEQ in NA CHLORIDE 0.9% 500 ML IV ONE; POTASSIUM CL SA 10 MEQ TAB PO ONE; Ringers Lactate 0 ML IV ONE; Ringers Lactate 1,000 ML IV ONE
[2020-11-12 10:12] VITALS: BP 138/75; TEMP 97.4; O2SAT 97
== END ==
LOC: OR 07:20
PROVIDERS: ATTEND Surgery
DX: E46 Unspecified protein-calorie malnutrition (principal); C10.9 Malignant neoplasm of oropharynx, unspecified; Z53.09 Procedure and treatment not carried out because of other contraindication
CPT/HCPCS: 36415; 80048; 84132; 85025; J0690; J3480; J7040; J7120

== ENCOUNTER 2020-11-15 07:34 | Day surgery (SDC) | payer OTHER ==
[2020-11-15 08:47] LABS: BUN Blood Urea Nitrogen 12 mg/dL (7-18); Bicarbonate 30 mmol/L (21-32); Glucose Level 86 mg/dL (74-106); Potassium 3.3 mmol/L (3.5-5.1); Sodium Level 136 mmol/L (136-145)
[2020-11-15] MEDS ORDERED: propofoL 200 MG/20 ML VIAL IV ONE ×2 (09:33→09:53)
[2020-11-15] MEDS ORDERED: LIDOCAINE 1% MPF 30 ML VIAL ONE (09:33)
--- NOTE | 2020-11-15 10:06 | ENDO RPT ---
[address], [address] EGD WITH PEG PROCEDURE REPORT EXAM DATE: 11/15/2020 PATIENT NAME: Katheryn García MR #: [id number] BIRTHDATE: 1950 ATTENDING: Pj Navarro DR STATUS: outpatient INVENTORY CONTROL SUPERVISOR: Wendy Naranjo RN and Chapis Parsons CST INDICATIONS: The patient is a 70 yr old Female here for an EGD with PEG due to dysphagia, odynophagia, malnutrition, and malignancy PROCEDURE PERFORMED: EGD-PEG MEDICATIONS: Per Anesthesia. TOPICAL ANESTHETIC: none CONSENT: The patient understands the risks and benefits of the procedure and understands that these risks include, but are not limited to: sedation, allergic reaction, infection, perforation and/or bleeding. Alternative means of evaluation and treatment include, among others: physical exam, x-rays, and/or surgical intervention. The patient elects to proceed with this endoscopic procedure. DESCRIPTION OF PROCEDURE: During intra-op preparation period all mechanical medical equipment was checked for proper function. Hand hygiene and appropriate measures for infection prevention was taken. After the risks, benefits and alternatives of the procedure were thoroughly explained, Informed consent was verified, confirmed and timeout was successfully executed by the treatment team. The patient was anesthetized with topical anesthesia and the Pentax EG-[id number] ([id number]) endoscope was introduced through the mouth and advanced to the second portion of the duodenum. The instrument was slowly withdrawn as the mucosa was fully examined. Inflammation was found in the pharynx. The stomach was then inflated with air, and by a combination of transillumination and manual palpation, the site for the gastrostomy tube placement was selected and marked on the anterior abdominal wall. The skin of the anterior abdomen was surgically prepped and draped with sterile towels. Utilizing strict sterile technique, the selected site was then anesthetized with 1% xylocaine by injection into the skin and subcutaneous tissue. A 1 cm incision was made through the skin and subcutaneous tissue, and the needle/cannula assembly was then passed through the abdominal wall and through the anterior wall of the stomach, maintaining visualization with the endoscope. A snare device previously placed through the instrument channel was then opened and placed around the cannula, the needle was removed, and the insertion wire was passed through the cannula and into the stomach lumen. The snare was then loosened from the cannula, and repositioned to snare the insertion wire. The snare was then pulled up to the endoscope distal tip, and the scope was then withdrawn bringing with it the snare and insertion wire. The insertion wire was then released from the snare, and then loop-attached to the PEG PULL gastrostomy tube. Using the pull technique, the G-tube was then pulled into place by traction on the insertion wire at the abdominal wall end. The G-tube insertion site was then cleansed once again, and the external bolster was placed over the tube to secure it to the abdominal wall. A sterile dressing was then applied, and the procedure terminated. Retroflexion was not performed. The gastroscope was then slowly withdrawn and removed. ADVERSE EVENT: There were no complications. IMPRESSIONS: Inflammation was found in the pharynx RECOMMENDATIONS: 1. avoid NSAIDS 2. begin feeding tomorrow 3. follow PEG suggestions REPEAT EXAM: Pj Navarro DR eSigned: Pj Navarro DR 11/15/2020 10:05 AM cc: CPT CODES: ICD9 CODES: PATIENT NAME: Katheryn García MR#: [id number]
[2020-11-15 10:54] VITALS: TEMP 97
[2020-11-15 10:55] VITALS: BP 102/69; O2SAT 100
== END 2020-11-15 10:49 | disposition home or self-care (01) ==
LOC: OR 07:34
PROVIDERS: ATTEND Surgery
PROC: 0DH63UZ Insertion of Feeding Device into Stomach, Percutaneous Approach (ICD-10-PCS; principal; 2020-11-15 09:15)
DX: R13.10 Dysphagia, unspecified (principal); E46 Unspecified protein-calorie malnutrition
CPT/HCPCS: 80048; 36415; 43246; J2704 ×2